=== PATIENT | female | born 1985 | race African-American/Black ===

== ENCOUNTER 2025-04-08 12:23 | Emergency (ER) | payer MEDICAID ==
[~2025-04-08] VITALS: Ht 170.2 cm; Wt 65.0 kg
[2025-04-08 12:31] VITALS: O2SAT 99
[2025-04-08] MEDS: SODIUM CHLORIDE 0.9% 1,000 ML IV NR (13:32)
[2025-04-08 15:35] VITALS: BP 130/89; PULSE 82; RESP 18; TEMP 36.8; O2SAT 100
== END 2025-04-08 15:59 | disposition left against medical advice (07) ==
LOC: ER 12:23
DX: R53.83 Other fatigue (principal); F19.10 Other psychoactive substance abuse, uncomplicated; Z79.899 Other long term (current) drug therapy
CPT/HCPCS: 96360; 99283